=== PATIENT | male | born 1940 | race Caucasian/White ===

== ENCOUNTER 2020-02-09 15:48 | Outpatient (REF) | payer MEDICARE, SELFPAY ==
[2020-02-09 19:29] LABS: HCT 41.7 % (40.0-50.0); HGB 13.5 g/dL (13.5-17.5); MCH 32.7 pg (27.0-33.0); MCHC 32.4 % (32.0-36.0); MPV 10.9 fL (8.0-11.0); Platelet Count 153 10^3/uL (130-400); RBC 4.13 10^6/uL (4.36-5.78); RDW 14.6 % (11.8-14.1); RDW-SD 53.8 fL; WBC 10.38 10^3/uL (4.4-10.8)
[2020-02-09 19:46] LABS: ALT 29 U/L (16-63); AST 13 U/L (15-37); Albumin 3.6 g/dL (3.4-5.0); Alkaline Phosphatase 75 U/L (46-116); Anion Gap 6.2 mmol/L (3-11); BUN 22 mg/dL (7-18); Bilirubin, Total 0.4 mg/dL (0.2-1.0); CO2 28.8 mmol/L (21.0-32.0); CREATININE 1.48 mg/dL (0.70-1.30); Calcium 8.9 mg/dL (8.5-10.1); Calculated LDL 100 mg/dL (<100); Chloride 103 mmol/L (98-107); Cholesterol 175 mg/dL (<200); Estimated GFR 46.09 (mL/min/1.73m2); Glucose 113 mg/dL (74-106); HDL Cholesterol 35 mg/dL (40-60); Potassium 5.3 mmol/L (3.5-5.1); Sodium 138 mmol/L (136-145); Total Protein 6.6 g/dL (6.4-8.2); Triglyceride 204 mg/dL (<150)
[2020-02-09 20:00] LABS: Hemoglobin A1C 6.5 % (<5.7)
== END 2020-02-09 16:08 ==
LOC: NCHCN 15:48
PROVIDERS: PCP Physician Assistant; Visit Provider Physician Assistant
DX: E11.9 Type 2 diabetes mellitus without complications (principal); I10 Essential (primary) hypertension; E78.5 Hyperlipidemia, unspecified; I50.9 Heart failure, unspecified; J44.9 Chronic obstructive pulmonary disease, unspecified
CPT/HCPCS: 80053; 80061; 85027; 83036

== ENCOUNTER 2020-06-08 16:08 | Outpatient (REF) | payer MEDICARE, SELFPAY ==
[2020-06-08 19:27] LABS: HCT 41.5 % (40.0-50.0); HGB 13.3 g/dL (13.5-17.5); MPV 11.3 fL (8.0-11.0); Platelet Count 194 10^3/uL (130-400); RBC 4.15 10^6/uL (4.36-5.78); RDW 13.4 % (11.8-14.1); RDW-SD 49.1 fL; WBC 8.89 10^3/uL (4.4-10.8)
[2020-06-08 19:59] LABS: Anion Gap 5.6 mmol/L (3-11); BUN 25 mg/dL (7-18); CO2 29.4 mmol/L (21.0-32.0); CREATININE 1.61 mg/dL (0.70-1.30); Calcium 8.7 mg/dL (8.5-10.1); Chloride 102 mmol/L (98-107); Estimated GFR 41.82 (mL/min/1.73m2); Glucose 143 mg/dL (74-106); Potassium 4.2 mmol/L (3.5-5.1); Sodium 137 mmol/L (136-145)
== END 2020-06-08 16:28 ==
LOC: NCHCN 16:08
PROVIDERS: PCP Physician Assistant; Visit Provider Physician Assistant
DX: N28.9 Disorder of kidney and ureter, unspecified (principal); I50.9 Heart failure, unspecified
CPT/HCPCS: 80048; 85027

== ENCOUNTER 2022-11-15 21:37 | Outpatient (REF) | payer MEDICARE, SELFPAY ==
[2022-11-15 16:08] LABS: ALT 16 U/L (16-63); AST 12 U/L (15-37); Albumin 3.6 g/dL (3.4-5.0); Alkaline Phosphatase 79 U/L (46-116); Anion Gap 10.4 mmol/L (3-11); BUN 49 mg/dL (7-18); Bilirubin, Total 0.4 mg/dL (0.2-1.0); CO2 27.6 mmol/L (21.0-32.0); CREATININE 2.3 mg/dL (0.70-1.30); Calculated LDL 110 mg/dL (<100); Chloride 103 mmol/L (98-107); Cholesterol 169 mg/dL (<200); Estimated GFR 28.18 (mL/min/1.73m2); Glucose 137 mg/dL (74-106); HDL Cholesterol 32 mg/dL (40-60); Hemoglobin A1C 6.5 % (<5.7); Potassium 4.9 mmol/L (3.5-5.1); Sodium 141 mmol/L (136-145); Triglyceride 138 mg/dL (<150)
[2022-11-15 16:29] LABS: COMMENT (LAB VIEW ONLY) 137.28 mg/dL; Microalb ug/mg Crea 4.4 ug/mg Cr
[2022-11-22 01:33] LABS: Testosterone, Total 97 ng/dL (240-950)
== END 2022-11-15 21:38 | disposition home or self-care (01) ==
LOC: NCHCN 21:37
PROVIDERS: PCP Physician Assistant; Visit Provider Physician Assistant
DX: E11.9 Type 2 diabetes mellitus without complications (principal); E29.1 Testicular hypofunction
CPT/HCPCS: 80053; 80061; 84403; 82043; 82570; 83036

== ENCOUNTER → 2023-04-30 10:44 | Outpatient (BNVA) | payer MEDICARE, SELFPAY | PROVIDERS: PCP Physician Assistant; Referring Provider Physician Assistant; Visit Provider Physician Assistant Surgical | DX: J44.9 Chronic obstructive pulmonary disease, unspecified (principal); Z87.891 Personal history of nicotine dependence | CPT/HCPCS: 99214 ==

== ENCOUNTER 2023-06-01 18:10 | Outpatient (REF) | payer MEDICARE, SELFPAY ==
[2023-06-01 18:28] LABS: HCT 35.6 % (40.0-50.0); HGB 11.4 g/dL (13.5-17.5); MCH 28.9 pg (27.0-33.0); MCV 90 fL (80-95); MPV 10.6 fL (8.0-11.0); Platelet Count 221 10^3/uL (130-400); RBC 3.94 10^6/uL (4.36-5.78); RDW 15.5 % (11.8-14.1); RDW-SD 51.7 fL; WBC 8.81 10^3/uL (4.4-10.8)
[2023-06-01 18:54] LABS: Hemoglobin A1C 7.1 % (<5.7)
[2023-06-01 19:17] LABS: ALT 18 U/L (16-63); AST 12 U/L (15-37); Albumin 3.3 g/dL (3.4-5.0); Alkaline Phosphatase 116 U/L (46-116); BUN 25 mg/dL (7-18); Bilirubin, Total 0.4 mg/dL (0.2-1.0); CREATININE 1.7 mg/dL (0.70-1.30); Calcium 8.5 mg/dL (8.5-10.1); Calculated LDL 53 mg/dL (<100); Chloride 105 mmol/L (98-107); Cholesterol 111 mg/dL (<200); Estimated GFR 40.25 (mL/min/1.73m2); Glucose 124 mg/dL (74-106); HDL Cholesterol 38 mg/dL (40-60); Potassium 3.9 mmol/L (3.5-5.1); Sodium 140 mmol/L (136-145); Triglyceride 100 mg/dL (<150)
== END 2023-06-01 18:11 | disposition home or self-care (01) ==
LOC: NCHCN 18:10
PROVIDERS: PCP Physician Assistant; Visit Provider Physician Assistant
DX: E11.9 Type 2 diabetes mellitus without complications (principal); I48.91 Unspecified atrial fibrillation
CPT/HCPCS: 80053; 80061; 85027; 83036

== ENCOUNTER 2024-01-23 15:15 | Outpatient (REF) | payer MEDICARE, SELFPAY ==
[2024-01-23 15:27] LABS: HCT 36.1 % (40.0-50.0); HGB 11.7 g/dL (13.5-17.5); MCH 30.2 pg (27.0-33.0); MCHC 32.4 % (32.0-36.0); MCV 93 fL (80-95); MPV 10.2 fL (8.0-11.0); Platelet Count 205 10^3/uL (130-400); RBC 3.87 10^6/uL (4.36-5.78); RDW 15.6 % (11.8-14.1); RDW-SD 53.5 fL; WBC 8.73 10^3/uL (4.4-10.8)
[2024-01-23 15:35] LABS: Anion Gap 8.4 mmol/L (3-11); BUN 18 mg/dL (7-18); CO2 27.6 mmol/L (21.0-32.0); CREATININE 1.7 mg/dL (0.70-1.30); Chloride 101 mmol/L (98-107); Glucose 184 mg/dL (74-106); Sodium 137 mmol/L (136-145)
== END 2024-01-23 15:16 | disposition home or self-care (01) ==
LOC: NCHCN 15:15
PROVIDERS: PCP Physician Assistant; Visit Provider Physician Assistant
DX: I10 Essential (primary) hypertension (principal); I48.91 Unspecified atrial fibrillation
CPT/HCPCS: 80048; 85027

== ENCOUNTER 2025-01-27 15:20 | Outpatient (REF) | payer MEDICARE, SELFPAY ==
[2025-01-27 19:51] LABS: HCT 33.2 % (40.0-50.0); HGB 10.2 g/dL (13.5-17.5); MCH 27.9 pg (27.0-33.0); MCHC 30.7 % (32.0-36.0); MCV 91 fL (80-95); MPV 10.7 fL (8.0-11.0); Platelet Count 192 10^3/uL (130-400); RBC 3.65 10^6/uL (4.36-5.78); RDW 16.2 % (11.8-14.1); RDW-SD 53.7 fL; WBC 7.23 10^3/uL (4.4-10.8)
[2025-01-27 20:13] LABS: Anion Gap 6.6 mmol/L (3-11); BUN 21 mg/dL (7-18); CO2 28.4 mmol/L (21.0-32.0); Calcium 8.8 mg/dL (8.5-10.1); Calculated LDL 54 mg/dL (<100); Chloride 105 mmol/L (98-107); Cholesterol 103 mg/dL (<200); Estimated GFR 42.75 (mL/min/1.73m2); Glucose 192 mg/dL (74-106); HDL Cholesterol 35 mg/dL (>or=40); Potassium 4.6 mmol/L (3.5-5.1); Sodium 140 mmol/L (136-145); Triglyceride 73 mg/dL (<150)
[2025-01-28 08:07] LABS: Iron 34 ug/dL (65-175); Total Iron Binding Capacity 301 ug/dL (250-450); Transferrin Sat 11 % (20-55)
[2025-01-28 08:27] LABS: Ferritin 20 ng/mL (26-388)
== END 2025-01-27 15:21 | disposition home or self-care (01) ==
LOC: NCHCN 15:20
PROVIDERS: PCP Physician Assistant; Visit Provider Physician Assistant
DX: D64.9 Anemia, unspecified (principal); I10 Essential (primary) hypertension
CPT/HCPCS: 80048; 80061; 85027; 82728; 83540; 83550

== ENCOUNTER → 2025-03-05 10:08 | Outpatient (BNVA) | payer MEDICARE, SELFPAY | PROVIDERS: PCP Physician Assistant; Referring Provider Physician Assistant; Visit Provider Podiatrist | DX: L84 Corns and callosities (principal); E11.42 Type 2 diabetes mellitus with diabetic polyneuropathy; L30.9 Dermatitis, unspecified; R60.0 Localized edema; R09.89 Other specified symptoms and signs involving the circulatory and respiratory systems; L65.9 Nonscarring hair loss, unspecified; R23.8 Other skin changes; L60.2 Onychogryphosis; L85.8 Other specified epidermal thickening | CPT/HCPCS: 99214; 11055 ==

== ENCOUNTER 2025-03-05 11:15 | Outpatient (CLI) | payer MEDICARE, SELFPAY ==
--- NOTE | 2025-03-05 12:20 | DI.RAD_ITS ---
Exam(s) XR FOOT LT COMPLETE XR ANKLE LT COMPLETE EXAM: XR ANKLE LT COMPLETE and XR foot LT complete CLINICAL HISTORY: charcot foot, deformity lt foot, pain, M21.962, M79.672 TECHNIQUE: 2D digital imaging was performed of the left foot and ankle. Seven images were obtained. AP, lateral and oblique views were obtained. COMPARISON: There are no priors for comparison. FINDINGS: BONES: No acute fracture is present. No bony destructive lesion is seen. There is a small enthesophyte at the posterior calcaneus. There is a plantar calcaneal spur. JOINTS:There is narrowing of the lateral ankle joint. There is pes planus. There are mild degenerative changes seen at the talonavicular joint and the 1st MTP joint. SOFT TISSUE: There is soft tissue swelling of the foot. No soft tissue gas is seen. IMPRESSION: 1. Narrowing of the lateral ankle joint. 2. Pes planus. 3. Degenerative changes of the foot and ankle. 4. Soft tissue swelling of the foot. DATA REPOSITORY: RADIATION DOSE DELIVERED:
--- NOTE | 2025-03-05 12:20 | DI.RAD_ITS ---
Exam(s) XR ANKLE RT COMPLETE XR FOOT RT COMPLETE EXAM: XR ANKLE RT COMPLETE and XR foot RT complete CLINICAL HISTORY: comparison views for left foot/ankle, rt foot pain, M79.671. TECHNIQUE: 2D digital imaging was performed of the right foot and ankle. Six images were obtained. AP, lateral and oblique views were obtained. COMPARISON: There are no priors for comparison. FINDINGS: BONES: No acute fracture is present. No bony destructive lesion is seen. There is a large enthesophyte at the posterior calcaneus. JOINTS: The ankle mortise is normally aligned. The joint spaces of the foot and ankle are well maintained. SOFT TISSUE: There is soft tissue swelling of the forefoot. No soft tissue gas is seen. IMPRESSION: Calcaneal spur. DATA REPOSITORY: RADIATION DOSE DELIVERED:
== END 2025-03-05 11:35 ==
LOC: DI 11:16
PROVIDERS: PCP Physician Assistant; Visit Provider Podiatrist
DX: M79.671 Pain in right foot (principal); M79.672 Pain in left foot; M21.41 Flat foot [pes planus] (acquired), right foot; M21.42 Flat foot [pes planus] (acquired), left foot; M21.962 Unspecified acquired deformity of left lower leg; E11.42 Type 2 diabetes mellitus with diabetic polyneuropathy; L30.9 Dermatitis, unspecified; R60.0 Localized edema; L84 Corns and callosities; R09.89 Other specified symptoms and signs involving the circulatory and respiratory systems; L65.9 Nonscarring hair loss, unspecified; R23.8 Other skin changes; L60.2 Onychogryphosis; L85.8 Other specified epidermal thickening; R23.4 Changes in skin texture
CPT/HCPCS: 11055; 99214; 73610; 73630

== ENCOUNTER → 2025-03-09 13:15 | Outpatient (BNVA) | payer MEDICARE, SELFPAY | PROVIDERS: PCP Physician Assistant; Referring Provider Physician Assistant; Visit Provider Podiatrist | DX: E11.42 Type 2 diabetes mellitus with diabetic polyneuropathy (principal); I73.89 Other specified peripheral vascular diseases; R09.89 Other specified symptoms and signs involving the circulatory and respiratory systems | CPT/HCPCS: 93922 ==

== ENCOUNTER 2025-04-28 15:52 | Outpatient (REF) | payer MEDICARE, SELFPAY ==
[2025-04-28 19:36] LABS: HCT 35.4 % (40.0-50.0); HGB 11.1 g/dL (13.5-17.5); MCH 28.5 pg (27.0-33.0); MCHC 31.4 % (32.0-36.0); MCV 91 fL (80-95); MPV 10.8 fL (8.0-11.0); Platelet Count 209 10^3/uL (130-400); RBC 3.89 10^6/uL (4.36-5.78); RDW 17.0 % (11.8-14.1); RDW-SD 56.3 fL; WBC 8.60 10^3/uL (4.4-10.8)
[2025-04-28 19:53] LABS: Anion Gap 9.6 mmol/L (3-11); BUN 27 mg/dL (9-23); CO2 27.4 mmol/L (20.0-31.0); Calcium 8.8 mg/dL (8.3-10.6); Chloride 104 mmol/L (98-107); Glucose 166 mg/dL (74-106); Iron 30 ug/dL (65-175); Potassium 4.2 mmol/L (3.5-5.1); Sodium 141 mmol/L (136-145)
[2025-04-28 20:23] LABS: Hemoglobin A1C 7.8 % (<5.7)
== END 2025-04-28 15:53 | disposition home or self-care (01) ==
LOC: NCHCN 15:52
PROVIDERS: PCP Physician Assistant; Visit Provider Physician Assistant
DX: I48.91 Unspecified atrial fibrillation (principal); D50.9 Iron deficiency anemia, unspecified; E11.9 Type 2 diabetes mellitus without complications; I10 Essential (primary) hypertension; Z79.4 Long term (current) use of insulin
CPT/HCPCS: 80048; 85027; 83036; 83540